=== PATIENT | female | born 1950 | race Caucasian/White ===

== ENCOUNTER 2024-01-17 10:15 | Inpatient (IN) | payer OTHER ==
[~2024-01-17] VITALS: Ht 167.6 cm; Wt 64.9 kg
[2024-01-17 10:23] VITALS: BP_SYST 129; PULSE 97; RESP 16; TEMP 102.1; O2SAT 95
[2024-01-17] MEDS ORDERED: ACETAMINOPHEN 500 MG TABLET PO ONE (10:30)
[2024-01-17 10:44] LABS: BASOPHILS % (AUTO) 0.1 % (0.0-2.0); HEMATOCRIT 39.7 % (36-48); HEMOGLOBIN 13.6 g/dL (12.0-16.0); LYMPHOCYTES # (AUTO) 0.3 K/uL (1.0-5.5); MEAN CORPUSCULAR HEMOGLOBIN 33 pg (27-31); MEAN CORPUSCULAR HGB CONC 34 % (32-36); MEAN CORPUSCULAR VOLUME 97 fL (79.0-98.0); MONOCYTES # (AUTO) 0.2 K/uL (0.0-1.0); MONOCYTES % (AUTO) 2.1 % (1.7-9.3); NEUTROPHILS # (AUTO) 9.8 K/uL (1.8-7.7); NEUTROPHILS % (AUTO) 94.8 % (40.0-70.0); PLATELET COUNT (AUTO) 130 K/uL (130-430); RED BLOOD CELL COUNT(AUTO) 4.09 MIL/uL (4.2-6.2); RED CELL DISTRIBUTION WIDTH 13.4 % (9.0-15.0); WHITE BLOOD COUNT (AUTO) 10.3 K/uL (4.8-10.8)
[2024-01-17 10:59] LABS: INR 1.1 (0.8-1.2); PROTHROMBIN TIME 11.8 SECS (9.5-12.5)
[2024-01-17] MEDS: NS 1000 ML IV.SOLN IV ONE (11:11)
[2024-01-17 11:14] LABS: ALANINE AMINOTRANSFERASE 79 U/L (12-78); ALBUMIN 3.4 g/dL (3.4-4.8); ANION GAP 11 (5-15); ASPARTATE AMINOTRANSFERASE 259 U/L (10-37); BILIRUBIN,DIRECT 0.2 mg/dL (0.0-0.3); CALCIUM 9.5 mg/dL (8.4-11.0); CARBON DIOXIDE 24 mmol/L (23-29); CHLORIDE 96 mmol/L (98-107); CREATININE 1.07 mg/dL (0.55-1.30); GLUCOSE 126 mg/dL (74-106); POTASSIUM 3.8 mmol/L (3.5-5.1); SODIUM SERUM 131 mmol/L (136-145); TOTAL BILIRUBIN 0.6 mg/dL (0.0-1.0); TOTAL PROTEIN, SERUM 6.5 g/dL (6.4-8.3); UREA NITROGEN, BLOOD 19 mg/dL (8-21)
[2024-01-17 11:35] LABS: BILIRUBIN,URINE 1+ (NEGATIVE); BLOOD, URINE 3+ (NEGATIVE); CLARITY/URINE CLEAR (CLEAR); COLOR,URINE YELLOW (YELLOW); GLUCOSE,URINE NEGATIVE (NEGATIVE); KETONES,URINE NEGATIVE (NEGATIVE); LEUKOCYTE ESTERASE ,URINE NEGATIVE (NEGATIVE); NITRITE, URINE NEGATIVE (NEGATIVE); PROTEIN URINE 2+ (NEGATIVE)
[2024-01-17] MEDS ORDERED: cefTRIAXone 1 GM VIAL ONE (11:39)
[2024-01-17 11:48] LABS: BACTERIA,URINE RARE /HPF (None Seen); URINE AMORPHOUS PHOSPHATES 1+ /HPF (None Seen); WBC,URINE 0-3 /HPF (0-3)
[2024-01-17 11:49] LABS: COARSE GRANULAR CASTS,URINE 0-2 /LPF (None Seen)
[2024-01-17] MEDS: ACETAMINOPHEN 650 MG SUPP.RECT RC ONE (11:57)
[2024-01-17] MEDS: cefTRIAXone 1 GM in D5W 50 ML IV ONE (11:57)
[2024-01-17] MEDS: methylPREDNISolone SOD SUCC/PF 62.5 MG/ML VIAL IVP ONE (12:40)
[2024-01-17] MEDS: VANCOMYCIN HCL 1,500 MG in NS 250 ML IV ONE (13:28)
[2024-01-17] MEDS: D5/0.45 NS 1,000 ML IV SCH (13:58)
[2024-01-17] MEDS ORDERED: ATEN-41 PO (15:26)
[2024-01-17] MEDS ORDERED: ROSU10TA72 PO (15:26)
[2024-01-17 15:30] VITALS: BP_SYST 110; PULSE 84; RESP 18; TEMP 99.8; O2SAT 99
[2024-01-17] MEDS: VANCOMYCIN HCL 500 MG in NS 100 ML IV SCH (18:30)
[2024-01-17 20:00] VITALS: BP_SYST 119; PULSE 88; RESP 18; TEMP 98.4; O2SAT 99
[2024-01-18] VITALS: BP_SYST 117; PULSE 87; RESP 18; TEMP 97.9; O2SAT 97
[2024-01-18] MEDS ORDERED: ONDANSETRON HCL 4 MG/2 ML VIAL IVP PRN (07:00)
[2024-01-18] MEDS ORDERED: ACETAMINOPHEN 325 MG TABLET PO PRN ×2 (07:00→07:15)
[2024-01-18] MEDS ORDERED: NALOXONE HCL 0.4 MG/ML AMP (NARCAN) IVP PRN ×2 (07:00)
[2024-01-18] MEDS ORDERED: HYDROcodone/ACETAMIN 5-325 MG TAB (NORCO/ VICODIN) PO PRN (07:00)
[2024-01-18 08:00] VITALS: BP_SYST 119; PULSE 80; RESP 18; TEMP 97.2
[2024-01-18] MEDS: ATENOLOL 25 MG TABLET(TENORMIN) PO SCH (09:40)
[2024-01-18 12:20] VITALS: BP_SYST 118; PULSE 84; RESP 17; TEMP 97.5; O2SAT 97
[2024-01-18 12:26] LABS: BASOPHILS % (AUTO) 0.2 % (0.0-2.0); HEMATOCRIT 40.9 % (36-48); HEMOGLOBIN 13.8 g/dL (12.0-16.0); LYMPHOCYTES # (AUTO) 0.4 K/uL (1.0-5.5); LYMPHOCYTES % (AUTO) 3.2 % (20.5-51.5); MEAN CORPUSCULAR HEMOGLOBIN 33 pg (27-31); MEAN CORPUSCULAR HGB CONC 34 % (32-36); MEAN CORPUSCULAR VOLUME 98 fL (79.0-98.0); MONOCYTES # (AUTO) 0.4 K/uL (0.0-1.0); MONOCYTES % (AUTO) 3.3 % (1.7-9.3); NEUTROPHILS # (AUTO) 10.9 K/uL (1.8-7.7); NEUTROPHILS % (AUTO) 93.3 % (40.0-70.0); PLATELET COUNT (AUTO) 108 K/uL (130-430); RED BLOOD CELL COUNT(AUTO) 4.17 MIL/uL (4.2-6.2); RED CELL DISTRIBUTION WIDTH 13.4 % (9.0-15.0); WHITE BLOOD COUNT (AUTO) 11.7 K/uL (4.8-10.8)
[2024-01-18 12:41] LABS: ALANINE AMINOTRANSFERASE 146 U/L (12-78); ALBUMIN 2.7 g/dL (3.4-4.8); ANION GAP 8 (5-15); ASPARTATE AMINOTRANSFERASE 428 U/L (10-37); CARBON DIOXIDE 23 mmol/L (23-29); CHLORIDE 97 mmol/L (98-107); CREATININE 0.82 mg/dL (0.55-1.30); GLUCOSE 107 mg/dL (74-106); POTASSIUM 3.5 mmol/L (3.5-5.1); SODIUM SERUM 128 mmol/L (136-145); TOTAL BILIRUBIN 0.4 mg/dL (0.0-1.0); TOTAL PROTEIN, SERUM 5.8 g/dL (6.4-8.3); UREA NITROGEN, BLOOD 17 mg/dL (8-21)
[2024-01-18] MEDS: cefTRIAXone 1 GM IVPB PREMIX 50 ML IV SCH (13:15)
[2024-01-18] MEDS: NORMAL SALINE 5 ML DISP.SYRIN IVF SCH (13:15)
[2024-01-18 16:38] VITALS: BP_SYST 120; PULSE 82; RESP 19; TEMP 97.3; O2SAT 97
[2024-01-18 20:00] VITALS: BP_SYST 129; PULSE 78; RESP 18; TEMP 97; O2SAT 95
[2024-01-18] MEDS: ATORVASTATIN 20 MG TABLET PO SCH (20:58)
[2024-01-18] MEDS: LORazepam 2 MG/ML VIAL IVP PRN (20:59)
[2024-01-19 00:36] VITALS: BP_SYST 118; PULSE 74; RESP 18; TEMP 97.2; O2SAT 96
[2024-01-19 04:47] LABS: BASOPHILS % (AUTO) 0.1 % (0.0-2.0); EOSINOPHILS % (AUTO) 0.1 % (0.0-4.0); HEMATOCRIT 39.3 % (36-48); LYMPHOCYTES # (AUTO) 0.4 K/uL (1.0-5.5); LYMPHOCYTES % (AUTO) 3.9 % (20.5-51.5); MEAN CORPUSCULAR HEMOGLOBIN 34 pg (27-31); MEAN CORPUSCULAR HGB CONC 36 % (32-36); MEAN CORPUSCULAR VOLUME 97 fL (79.0-98.0); MONOCYTES # (AUTO) 0.4 K/uL (0.0-1.0); MONOCYTES % (AUTO) 3.7 % (1.7-9.3); NEUTROPHILS # (AUTO) 9.4 K/uL (1.8-7.7); NEUTROPHILS % (AUTO) 92.2 % (40.0-70.0); PLATELET COUNT (AUTO) 106 K/uL (130-430); RED BLOOD CELL COUNT(AUTO) 4.07 MIL/uL (4.2-6.2); RED CELL DISTRIBUTION WIDTH 13.3 % (9.0-15.0); WHITE BLOOD COUNT (AUTO) 10.2 K/uL (4.8-10.8)
[2024-01-19 04:50] LABS: ALANINE AMINOTRANSFERASE 158 U/L (12-78); ALBUMIN 2.4 g/dL (3.4-4.8); ANION GAP 5 (5-15); ASPARTATE AMINOTRANSFERASE 337 U/L (10-37); CALCIUM 9.2 mg/dL (8.4-11.0); CARBON DIOXIDE 27 mmol/L (23-29); CHLORIDE 96 mmol/L (98-107); CREATININE 0.74 mg/dL (0.55-1.30); GLUCOSE 112 mg/dL (74-106); POTASSIUM 3.9 mmol/L (3.5-5.1); SODIUM SERUM 128 mmol/L (136-145); TOTAL BILIRUBIN 0.5 mg/dL (0.0-1.0); TOTAL PROTEIN, SERUM 5.8 g/dL (6.4-8.3); UREA NITROGEN, BLOOD 18 mg/dL (8-21)
[2024-01-19 08:19] VITALS: BP_SYST 141; PULSE 75; RESP 18; TEMP 98.6; O2SAT 96
[2024-01-19 09:25] VITALS: O2SAT 96
[2024-01-19 09:59] LABS: TOTAL IRON BIND. CAPACITY 158 ug/dL (250-450)
[2024-01-19] MEDS: CEFTRIAXONE SOD 1 GM/ D5W 50 ML IV SCH (14:06)
[2024-01-19 15:40] VITALS: BP_SYST 132; PULSE 89; RESP 18; TEMP 98.8; O2SAT 97
[2024-01-19] MEDS: FUROSEMIDE 20 MG/2 ML VIAL IVP ONE (15:48)
[2024-01-19] MEDS: NA PHOS 30 MM in NS 250 ML IV ONE (17:05)
[2024-01-19 20:00] VITALS: BP_SYST 126; PULSE 74; RESP 18; TEMP 97.4; O2SAT 98
[2024-01-20] VITALS: BP_SYST 122; PULSE 78; RESP 18; TEMP 97.8; O2SAT 97
[2024-01-20] MEDS: HYDROcodone/ACETAMIN 10-325 MG TAB PO PRN (05:04)
[2024-01-20 05:55] LABS: BASOPHILS % (AUTO) 0.1 % (0.0-2.0); EOSINOPHILS % (AUTO) 0.3 % (0.0-4.0); HEMATOCRIT 39.6 % (36-48); HEMOGLOBIN 13.7 g/dL (12.0-16.0); LYMPHOCYTES # (AUTO) 0.8 K/uL (1.0-5.5); LYMPHOCYTES % (AUTO) 7.1 % (20.5-51.5); MEAN CORPUSCULAR HEMOGLOBIN 33 pg (27-31); MEAN CORPUSCULAR HGB CONC 35 % (32-36); MEAN CORPUSCULAR VOLUME 96 fL (79.0-98.0); MONOCYTES # (AUTO) 0.8 K/uL (0.0-1.0); MONOCYTES % (AUTO) 7.3 % (1.7-9.3); NEUTROPHILS # (AUTO) 9.5 K/uL (1.8-7.7); NEUTROPHILS % (AUTO) 85.2 % (40.0-70.0); PLATELET COUNT (AUTO) 96 K/uL (130-430); RED BLOOD CELL COUNT(AUTO) 4.11 MIL/uL (4.2-6.2); RED CELL DISTRIBUTION WIDTH 13.3 % (9.0-15.0); WHITE BLOOD COUNT (AUTO) 11.1 K/uL (4.8-10.8)
[2024-01-20 06:20] LABS: ALANINE AMINOTRANSFERASE 191 U/L (12-78); ALBUMIN 2.3 g/dL (3.4-4.8); ANION GAP 6 (5-15); ASPARTATE AMINOTRANSFERASE 333 U/L (10-37); CALCIUM 8.9 mg/dL (8.4-11.0); CARBON DIOXIDE 27 mmol/L (23-29); CHLORIDE 96 mmol/L (98-107); CREATININE 0.66 mg/dL (0.55-1.30); GLUCOSE 105 mg/dL (74-106); SODIUM SERUM 129 mmol/L (136-145); TOTAL BILIRUBIN 0.6 mg/dL (0.0-1.0); TOTAL PROTEIN, SERUM 5.7 g/dL (6.4-8.3); UREA NITROGEN, BLOOD 12 mg/dL (8-21)
[2024-01-20 06:50] LABS: POTASSIUM 2.9 mmol/L (3.5-5.1)
[2024-01-20 07:06] LABS: HEPATITIS B CORE AB, TOTAL Negative (Negative); HEPATITIS B SURFACE AG Negative (Negative); HEPATITIS C VIRUS AB Non Reactive (Non Reactive)
[2024-01-20 08:07] VITALS: BP_SYST 114; PULSE 68; RESP 18; TEMP 96.9; O2SAT 97
[2024-01-20] MEDS: ASPIRIN 81 MG TABLET(ECOTRIN) PO SCH (08:58)
[2024-01-20 10:25] VITALS: O2SAT 97
[2024-01-20] MEDS: SPIRONOLACTONE 25 MG TABLET (ALDACTONE) PO ONE (10:38)
[2024-01-20] MEDS: MAGNESIUM SULFATE 50 ML IV ONE (10:39)
[2024-01-20 12:55] VITALS: BP_SYST 118; PULSE 61; RESP 19; TEMP 98.5; O2SAT 96
[2024-01-20] MEDS: KCL 20 mEq in 100 mL (PREMIX) 200 ML IV ONE (12:57)
[2024-01-20 17:22] VITALS: BP_SYST 111; PULSE 60; RESP 16; TEMP 97.8; O2SAT 97
[2024-01-20] MEDS: NACL 0.9% 1,000 ML IV SCH (18:47)
[2024-01-20 20:00] VITALS: BP_SYST 109; PULSE 67; RESP 18; TEMP 97.4; O2SAT 97
[2024-01-21] VITALS: BP_SYST 112; PULSE 64; RESP 18; TEMP 97.4; O2SAT 97
[2024-01-21 06:35] LABS: BASOPHILS % (AUTO) 0.4 % (0.0-2.0); EOSINOPHILS # (AUTO) 0.2 K/uL (0.0-0.4); EOSINOPHILS % (AUTO) 2.4 % (0.0-4.0); HEMATOCRIT 37.7 % (36-48); HEMOGLOBIN 13.1 g/dL (12.0-16.0); LYMPHOCYTES # (AUTO) 1.2 K/uL (1.0-5.5); MEAN CORPUSCULAR HEMOGLOBIN 34 pg (27-31); MEAN CORPUSCULAR HGB CONC 35 % (32-36); MEAN CORPUSCULAR VOLUME 96 fL (79.0-98.0); MONOCYTES # (AUTO) 0.7 K/uL (0.0-1.0); MONOCYTES % (AUTO) 9.1 % (1.7-9.3); NEUTROPHILS # (AUTO) 5.8 K/uL (1.8-7.7); NEUTROPHILS % (AUTO) 73.1 % (40.0-70.0); PLATELET COUNT (AUTO) 124 K/uL (130-430); RED BLOOD CELL COUNT(AUTO) 3.91 MIL/uL (4.2-6.2); RED CELL DISTRIBUTION WIDTH 13.2 % (9.0-15.0); WHITE BLOOD COUNT (AUTO) 7.9 K/uL (4.8-10.8)
[2024-01-21 06:36] LABS: ALANINE AMINOTRANSFERASE 179 U/L (12-78); ANION GAP 2 (5-15); ASPARTATE AMINOTRANSFERASE 231 U/L (10-37); BILIRUBIN,DIRECT 0.1 mg/dL (0.0-0.3); CALCIUM 8.6 mg/dL (8.4-11.0); CARBON DIOXIDE 28 mmol/L (23-29); CHLORIDE 102 mmol/L (98-107); CREATININE 0.55 mg/dL (0.55-1.30); GLUCOSE 87 mg/dL (74-106); POTASSIUM 3.5 mmol/L (3.5-5.1); SODIUM SERUM 132 mmol/L (136-145); TOTAL BILIRUBIN 0.4 mg/dL (0.0-1.0); UREA NITROGEN, BLOOD 10 mg/dL (8-21)
[2024-01-21 08:00] VITALS: O2SAT 98
[2024-01-21] MEDS: SPIRONOLACTONE 25 MG TABLET (ALDACTONE) PO SCH (09:37)
[2024-01-21] MEDS ORDERED: ROCPM1 IV (14:05)
[2024-01-21 15:14] LABS: INR 0.9 (0.8-1.2); PROTHROMBIN TIME 10.1 SECS (9.5-12.5)
[2024-01-21 19:00] VITALS: O2SAT 98
[2024-01-22 04:00] VITALS: BP_SYST 126; PULSE 70; RESP 18; TEMP 97.5; O2SAT 97
[2024-01-22 07:05] LABS: BASOPHILS # (AUTO) 0.1 K/uL (0.0-0.2); BASOPHILS % (AUTO) 0.6 % (0.0-2.0); EOSINOPHILS # (AUTO) 0.4 K/uL (0.0-0.4); EOSINOPHILS % (AUTO) 4.2 % (0.0-4.0); HEMATOCRIT 36.6 % (36-48); HEMOGLOBIN 12.5 g/dL (12.0-16.0); LYMPHOCYTES % (AUTO) 21.3 % (20.5-51.5); MEAN CORPUSCULAR HEMOGLOBIN 33 pg (27-31); MEAN CORPUSCULAR HGB CONC 34 % (32-36); MEAN CORPUSCULAR VOLUME 97 fL (79.0-98.0); MONOCYTES # (AUTO) 1.1 K/uL (0.0-1.0); MONOCYTES % (AUTO) 11.4 % (1.7-9.3); NEUTROPHILS # (AUTO) 5.7 K/uL (1.8-7.7); NEUTROPHILS % (AUTO) 62.5 % (40.0-70.0); PLATELET COUNT (AUTO) 174 K/uL (130-430); RED BLOOD CELL COUNT(AUTO) 3.79 MIL/uL (4.2-6.2); RED CELL DISTRIBUTION WIDTH 13.4 % (9.0-15.0); WHITE BLOOD COUNT (AUTO) 9.2 K/uL (4.8-10.8)
[2024-01-22 07:58] LABS: ALANINE AMINOTRANSFERASE 162 U/L (12-78); ALBUMIN 2.2 g/dL (3.4-4.8); ANION GAP 6 (5-15); ASPARTATE AMINOTRANSFERASE 163 U/L (10-37); CALCIUM 8.9 mg/dL (8.4-11.0); CARBON DIOXIDE 29 mmol/L (23-29); CHLORIDE 99 mmol/L (98-107); CREATININE 0.57 mg/dL (0.55-1.30); GLUCOSE 77 mg/dL (74-106); POTASSIUM 3.2 mmol/L (3.5-5.1); SODIUM SERUM 134 mmol/L (136-145); TOTAL BILIRUBIN 0.6 mg/dL (0.0-1.0); TOTAL PROTEIN, SERUM 5.2 g/dL (6.4-8.3); UREA NITROGEN, BLOOD 12 mg/dL (8-21)
[2024-01-22 08:30] VITALS: O2SAT 95
[2024-01-22 09:16] VITALS: BP_SYST 135; PULSE 74; RESP 12; TEMP 97.8; O2SAT 95
[2024-01-22] MEDS ORDERED: SPIR25TA PO (09:32)
[2024-01-22] MEDS: POTASSIUM CHLORIDE 20 MEQ TABLET.ER PO ONE (16:12)
[2024-01-22 16:28] VITALS: BP_SYST 133; PULSE 68; RESP 16; TEMP 98.4; O2SAT 97
== END 2024-01-22 16:50 | disposition home health service (06) | DRG 872 ==
LOC: SED 10:15 → STU 12:42 → SMU 01-19 16:45
PROVIDERS: ADMIT Preventive Medicine Preventive Medicine/Occupational Environmental Medicine; ATTEND Specialist
PROC: 4A00X4Z Measurement of Central Nervous Electrical Activity, External Approach (ICD-10-PCS; principal; 2024-01-19)
PROC: 02HV33Z Insertion of Infusion Device into Superior Vena Cava, Percutaneous Approach (ICD-10-PCS; 2024-01-21)
PROC: B548ZZA Ultrasonography of Superior Vena Cava, Guidance (ICD-10-PCS; 2024-01-21)
DX: A40.9 Streptococcal sepsis, unspecified (principal); L03.113 Cellulitis of right upper limb; E87.1 Hypo-osmolality and hyponatremia; E78.5 Hyperlipidemia, unspecified; I10 Essential (primary) hypertension; Z96.643 Presence of artificial hip joint, bilateral; R73.9 Hyperglycemia, unspecified; Z96.651 Presence of right artificial knee joint; F10.120 Alcohol abuse with intoxication, uncomplicated; K70.10 Alcoholic hepatitis without ascites; Z79.899 Other long term (current) drug therapy; Z88.8 Allergy status to other drugs, medicaments and biological substances
CPT/HCPCS: 36415; 70450-TC; 70551; 71045; 72125-TC; 76700; 80048; 80053; 80076; 80202; 81000; 81001; 81015; 82140; 83540; 83550; 83605; 83735; 84100; 84311; 84484; 84550; 85025; 85610; 85730; 86704; 86706; 86708; 86803; 87040; 87086; 87186; 87340; 93005; 93306; 95816; 96365; 97110-GP; 97116-GP; 97530-GP; 99291; C1751; G0378; J0696; J1940; J2060; J2930; J3370; J3475; J3480; J7030; J7050; J7060